=== PATIENT | female | born 1950 | race Caucasian/White ===

== ENCOUNTER → 2019-07-20 17:18 | Outpatient (BNVA) | payer MEDICARE, OTHER, SELFPAY | PROVIDERS: PCP Nurse Practitioner Family; Visit Provider Nurse Practitioner Family | DX: I10 Essential (primary) hypertension (principal); Z11.1 Encounter for screening for respiratory tuberculosis; Z00.00 Encounter for general adult medical examination without abnormal findings; J32.9 Chronic sinusitis, unspecified; R42 Dizziness and giddiness; R73.9 Hyperglycemia, unspecified | CPT/HCPCS: 80053; 80061; 83036; 83721; 84443; 85025 ==